=== PATIENT | male | born 1985 | race Caucasian/White ===

== ENCOUNTER 2019-12-10 19:03 | Emergency (ER) | payer SELFPAY ==
[~2019-12-10] VITALS: Ht 167.6 cm; Wt 158.8 kg
[2019-12-10 19:04] VITALS: Ht 167.6 cm; Wt 158.8 kg
[2019-12-10 22:30] VITALS: BP 145/78
== END 2019-12-10 22:30 | disposition home or self-care (01) ==
LOC: ED 19:03
DX: B34.9 Viral infection, unspecified (principal); I10 Essential (primary) hypertension; J45.909 Unspecified asthma, uncomplicated; Z20.828 Contact with and (suspected) exposure to other viral communicable diseases
CPT/HCPCS: 87804; J1885; J7030